=== PATIENT | male | born 1950 | race Caucasian/White ===

== ENCOUNTER 2018-12-28 14:42 | Emergency (ER) | payer MEDICARE, OTHER ==
[~2018-12-28] VITALS: Ht 190.5 cm; Wt 136.1 kg
[~2018-12-28 14:42] MED LIST: AMBIEN5 MG PO; ASPIRIN EC81 MG PO; FLOMAX0.4 MG PO; GLUCOPHAGE XR750 MG PO; HYDROMORPHONE HC4 MG PO; INVOKANA300 MG PO; IRON18 MG PO; LEVAQUIN750 MG PO; LEVOTHYROXINE125 MCG PO; LIPITOR40 MG PO; LISINOPRIL5 MG PO; METFORMIN HCL500 MG PO; MILK OF MA400 MG/5 M PO; MIRALAX17 GM PO; NAPRELAN500 MG PO; NAPROSYN500 MG PO; NORCO 7.5-3251 EACH PO; OXYCODONE HCL10 MG PO; VITAMIN C500 M1 PO; XARELTO10 MG PO; ZOCOR40 MG PO; ZOLPIDEM TARTRA10 MG PO
[2018-12-28] MEDS ORDERED: NORCO 7.5-3251 EACH PO (19:20)
[2018-12-28] MEDS ORDERED: KEFLEX500 MG PO (19:20)
[2018-12-28] MEDS ORDERED: PREDNISONE20 MG PO (19:20)
== END 2018-12-28 19:30 | disposition home or self-care (01) ==
LOC: ED 14:42
DX: M19.031 Primary osteoarthritis, right wrist (principal); I10 Essential (primary) hypertension; E03.9 Hypothyroidism, unspecified; Z87.891 Personal history of nicotine dependence; Z79.82 Long term (current) use of aspirin
CPT/HCPCS: 73110; 80053; 84550; 85025; 85651; 99283; J7512

== ENCOUNTER 2019-01-09 09:52 | Observation (INO) | payer MEDICARE, OTHER ==
[~2019-01-09] VITALS: Ht 190.5 cm; Wt 136.1 kg
[~2019-01-09 09:52] MED LIST changes: +KEFLEX500 MG PO; +PREDNISONE20 MG PO
--- OUTSIDE RECORDS SUMMARY | 2019-01-09 09:54 | XMS ---
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 E.D. VISIT COUNT (12 MO.) 2 J[facility] Sparks TOTAL 2 NOTE: Visits indicate total known visits. 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
[2019-01-09] MEDS ORDERED: COLCHICINE0.6 M1 PO (10:44)
[2019-01-09] MEDS ORDERED: IBU600 MG PO (10:44)
[2019-01-09] MEDS ORDERED: FISH OIL 1,0001 EAC3 (17:46)
[2019-01-09] MEDS ORDERED: LEVOTHYROXINE200 MCG PO (17:53)
[2019-01-09] MEDS ORDERED: METFORMIN HCL500 MG PO (17:54)
--- NOTE | 2019-01-09 18:59 | NUR ---
PT ADMITTED FROM ED FOR LEFT HAND GOUT AND HYPERKALEMIA. PT BLOOD PRESSURE 96/56, NOTIFIED MD WITH ORDERS TO START NS AT 250ML/HR. CURRENT IV'S STARTED SODIUM BICARB AND 0.9% SODIUM CHLORIDE. PT HAS 20G IN R HAND THAT WAS RED AND SWOLLEN. PT STATES THAT STARTED IN THE ER. STARTED A NEW IV 20G IN THE RIGHT FOREARM. PT AT BEDSIDE. PT EATING DINNER BLT SANDWICH AND SOUP. PT HAS NO FURTHER NEEDS/CONCERNS AT THIS TIME. CALL LIGHT WITHIN REACH.
--- NOTE | 2019-01-09 20:00 | NUR ---
COOP WITH ASSESSMENT, ON ROOM AIR. IVF INFUSING W/O PROBLEMS, DECREASED REDNESS OF R HAND, GENERALIZED EDEMA. L BELOW THE ELBOW TO HAND RED AND VERY TENDER TO TOUCH. ELEVATED. NO N/V, NO C/O PAIN EXCEPT TENDERNESS WHEN TOUCHED
--- NOTE | 2019-01-09 22:54 | NUR ---
AWAKE, WATCHING TV, L ARM ELEVATED IN PILLOWS, NO C/O PAIN AT THIS TIME. ON ROOM AIR. VOIDED QS DARK YELLOW URINE, TOLERATING FLUIDS WELL, CALL LIGTH AT BEDSIDE
--- NOTE | 2019-01-10 00:31 | NUR ---
AWAKENS EASILY, NO C/O CP OR DISTRESS, TELE#1 INPLACE, RUN OF PVCS PER MONITOR.USING URINAL AND VOIDING QS. L ARM ELEVATED IN PILLOWS, RED, +1 NON PITTING EDEMA, VERY TENDER TO TOUCH. IVF INFUSING. CALL LIGHT AND FLUIDS AT BEDSIDE
--- NOTE | 2019-01-10 06:02 | NUR ---
TELE#1 IN [place]. AWAKES EASILY, HAS SLEPT WELL, NO C/O CP, PAIN OR SOB AT THIS TIME. L ARM DECREASED EDEMA, DECREASED PAIN AND REDNESS, GOOD CMS. NO C/O HYPO/HYPERGLYCEMIA. TOLERATING FLUIDS WELL, NO N/V, CALL LIGHT AND FLUIDS AT BEDSIDE.
--- NOTE | 2019-01-10 09:51 | NUR ---
PT RESTING IN BED. PT IN ROOM WITH PT. CALL LIGHT WITHIN REACH.
--- NOTE | 2019-01-10 09:56 | NUR ---
PT WAS RESTING IN BED-ALERT, ORIENTED AND SUPPORTED BY HIS . THEY BOTH ARE PLEASANT, PT FEELS LIKE HE IS RESPONDING TO TREATMENT. EXTENDED A BLESSING, WILL FOLLOW NEEDED
[2019-01-10] MEDS ORDERED: PREDNISONE20 MG PO ×2 (11:05→11:07)
[2019-01-10] MEDS ORDERED: PREDNISONE10 MG PO ×2 (11:06→11:07)
[2019-01-10] MEDS ORDERED: PREDNISONE5 MG PO (11:08)
[2019-01-10] MEDS ORDERED: ALLOPURINOL100 MG PO (11:08)
--- NOTE | 2019-01-10 16:07 | EKG ---
[facility] [address] [facility] [place], [place] [address] Signed Normal sinus rhythm Low voltage QRS Borderline ECG No previous ECGs available Confirmed by SHAYAN MENDOZA DO ([id number]) on 01/10/2019 4:06:46 PM Electronically Signed By: SHAYAN MENDOZA DO 01/10/19 1607 PATIENT NAME: RUMA JOYNER Electrocardiogram DATE OF : 54 PHYSICIAN: SHAYAN MENDOZA DO REPORT #: [id number] REPORT IS CONFIDENTIAL AND NOT TO BE RELEASED WITHOUT AUTHORIZATION
== END 2019-01-10 12:30 | disposition home or self-care (01) ==
LOC: ED 09:52 → MS 09:53
PROVIDERS: ADMIT Student in an Organized Health Care Education/Training Program
DX: E87.5 Hyperkalemia (principal); M10.9 Gout, unspecified; E11.9 Type 2 diabetes mellitus without complications; I10 Essential (primary) hypertension; E03.9 Hypothyroidism, unspecified; L30.9 Dermatitis, unspecified; Z87.891 Personal history of nicotine dependence; Z87.442 Personal history of urinary calculi; Z79.84 Long term (current) use of oral hypoglycemic drugs; Z79.1 Long term (current) use of non-steroidal anti-inflammatories (NSAID); Z79.82 Long term (current) use of aspirin; Z79.52 Long term (current) use of systemic steroids; Z79.899 Other long term (current) drug therapy
CPT/HCPCS: 36415; 71045; 73110; 80048; 80053; 81001; 83520; 83605; 83735; 84132; 84550; 85025; 86038; 86431; 93005; 93010; 96361; 96365; 96366; 96367; 96375; 99284-25; G0378; J0610; J1815; J3475; J7030; J7060; J7512